=== PATIENT | female | born 1980 | race Caucasian/White ===

== ENCOUNTER → 2024-07-25 | Day surgery (SDC) | payer OTHER ==
--- NOTE | 2024-07-25 20:14 | RAD REPORT ---
EXAMINATION: ULTRASOUND GUIDED VACUUM-ASSISTED LEFT BREAST CORE NEEDLE BIOPSY LEFT breast core needle biopsy; percutaneous, using ultrasound guidance. Image guided placement, metallic localization clip, percutaneous. Post Bx mammogram: LEFT Dx Mammogram. CLINICAL INDICATION:. N63.20 INFORMED CONSENT: The risks, benefits, alternatives, and potential complications of ultrasound guided vacuum-assisted LEFT breast biopsy were discussed with the patient. An informed consent sheet was signed. The risks include but are not limited to the following: bleeding, infection, vascular injury, organ injury, pneumothorax, allergic reaction, and the need for emergent surgery/procedures. BIOPSY TARGET: LEFT breast, inferior approach involving the larger more medial solid lesion in the le ft breast. NEEDLE: 12 gauge Celero vacuum-assisted core biopsy needle, 3 cores. SEDATION: None. COMPLICATIONS: None. TECHNIQUE: Appropriate audible time out was performed. The skin was prepped and draped in the normal fashion. The soft tissues were anesthetized with lidocaine. Utilizing real-time ultrasound guidance, a vacuum-assisted core biopsy needle was placed into the breast location described below wi th removal of tissue for pathology evaluation. Metallic clip was placed within the biopsied lesion under ultrasound guidance. Compression was held. Hemostasis was achieved. Sterile dressing was applie d. Patient tolerated the procedure well without immediate complication. The technologist was in the room with the radiologist throughout the procedure. IMPRESSION: 1.Successful ultrasound guided vacuum-assisted core biopsy of the larger more medial LEFT breast les ion as described above. 2. Biopsy clip placed within the biopsied lesion.
--- NOTE | 2024-07-25 20:15 | RAD REPORT ---
EXAMINATION: ULTRASOUND GUIDED VACUUM-ASSISTED LEFT BREAST CORE NEEDLE BIOPSY LEFT breast core needle biopsy; percutaneous, using ultrasound guidance. Image guided placement, metallic localization clip, percutaneous. Post Bx mammogram: None CLINICAL INDICATION:. N63.20 INFORMED CONSENT: The risks, benefits, alternatives, and potential complications of ultrasound guided vacuum-assisted LEFT breast biopsy were discussed with the patient. An informed consent sheet was signed. The risks include but are not limited to the following: bleeding, infection, vascular injury, organ injury, pneumothorax, allergic reaction, and the need for emergent surgery/procedures. BIOPSY TARGET: LEFT breast, inferior approach of the smaller more lateral breast lesion at approximat ramin 8:00 o'clock. NEEDLE: 12 gauge Celero vacuum-assisted core biopsy needle, 3 cores. SEDATION: None. COMPLICATIONS: None. TECHNIQUE: Appropriate audible time out was performed. The skin was prepped and draped in the normal fashion. The soft tissues were anesthetized with lidocaine. Utilizing real-time ultrasound guidance, a vacuum-assisted core biopsy needle was placed into the breast location described below wi th removal of tissue for pathology evaluation. Metallic clip was placed within the biopsied lesion under ultrasound guidance. Compression was held. Hemostasis was achieved. Sterile dressing was applie d. Patient tolerated the procedure well without immediate complication. The technologist was in the room with the radiologist throughout the procedure. IMPRESSION: 1.Successful ultrasound guided vacuum-assisted core biopsy of the smaller more lateral LEFT breast a s described above. 2. Biopsy clip placed within the biopsied lesion.
--- NOTE | 2024-08-06 11:45 | RAD REPORT ---
EXAM DESCRIPTION: S/P CLIP PLACEMENT UNI COMPARISON: Procedural images of ultrasound-guided core biopsy of the same day. TECHNIQUE: Full field CC and MLO views of the left breast were obtained utilizing digital breast 3D tomosynthesis technique. Computer-aided detection was utilized. FINDINGS: Postbiopsy changes are present, with two postbiopsy clips in satisfactory location in [loca tion] to the target lesion. No hematoma. IMPRESSION: Postprocedural mammogram for clip localization as above. BI-Rads: Post Clip Placement under Mammo Density: B: There are scattered areas of fibroglandular density. *A negative x-ray report should not delay biopsy if a dominant or clinically suspicious mass is prese nt. 4.8% of cancers are not identified by x-ray. *A negative report may reinforce clinical impression. *Adenosis and dense breasts may obscure an underlying neoplasm. *False positive reports average 6-10%. Transcribed Date/Time: 08/06/2024 11:45 AM
== END ==
LOC: DS 08:00
PROVIDERS: ATTEND Obstetrics & Gynecology
DX: D24.2 Benign neoplasm of left breast (principal); N60.82 Other benign mammary dysplasias of left breast
CPT/HCPCS: 19083; 19084; 77065; 88305